=== PATIENT | male | born 1945 | race Caucasian/White ===

== ENCOUNTER 2019-05-08 17:44 | Emergency (ER) | payer MEDICARE, OTHER ==
[~2019-05-08 17:44] MED LIST: Iopamidol 370 76% 100 ML VIAL ONE
[2019-05-08] MEDS ORDERED: Aspirin Chewable 81 MG TAB ONE (17:58)
[2019-05-08 18:11] LABS: #Basophils 0.1 thou/uL (0.0-0.2); #Eosinphils 0.2 thou/uL (0.0-0.7); #Lymphocytes 2.9 thou/uL (1.20-3.40); #Monocytes 0.9 thou/uL (0.11-0.59); #Neutrophils 8.1 thou/uL (1.40-6.50); %Basophils 0.7 % (0.0-1.0); %Eosinophils 1.6 % (0.0-10.0); %Lymphocytes 23.9 % (21.0-51.0); %Monocytes 7.3 % (0.0-10.0); %Neutrophils 66.5 % (42.0-75.0); Hemoglobin 12.9 g/dL (14.0-18.0); Mean Corpuscular HGB CONC 31.8 g/dL (32.0-36.0); Mean Corpuscular Hemoglobin 26.5 pg (27.0-31.0); Mean Corpuscular Volume 83.3 fL (78.0-98.0); Mean Platelet Volume 6.9 fL (7.4-10.4); Platelet Count 298 thou/uL (130-400); RBC Distribution Width 13.4 % (11.5-14.5); Red Blood Cell (RBC) Count 4.87 mill/uL (4.70-6.10); White Blood Cell (WBC) Count 12.2 thou/uL (4.8-10.8)
[2019-05-08 18:44] LABS: ALT (SGPT) 13 U/L (8-55); AST (SGOT) 16 U/L (5-34); Albumin 4.3 g/dL (3.4-4.8); Alkaline Phosphatase 83 U/L (40-150); Anion Gap 17 mmol/L (10-20); BUN (Urea Nitrogen) 17 mg/dL (8.4-25.7); Bilirubin, Total 0.4 mg/dL (0.2-1.2); Calc. Creatinine Clearance 0 mL/min (70-130); Calcium 9.5 mg/dL (7.8-10.44); Carbon Dioxide 24 mmol/L (23-31); Chloride 100 mmol/L (98-107); Estimated GFR-MDRD 63; Globulin 3.2 g/dL (2.4-3.5); Glucose 115 mg/dL (83-110); Lipase 36 U/L (8-78); Potassium 3.7 mmol/L (3.5-5.1); Protein, Total 7.5 g/dL (5.8-8.1); Sodium 137 mmol/L (136-145)
--- NOTE | 2019-05-08 19:37 | RAD ---
EXAM: Single view of the chest HISTORY: Chest pain COMPARISON: 04/14/2014 FINDINGS: Single view of the chest shows a normal sized cardiomediastinal silhouette. Atheroscleroti c calcific lesions are seen in the aorta. There is no evidence of consolidation, mass, or pleural effusion. The bones are unremarkable. IMPRESSION: No evidence of acute cardiopulmonary disease
--- NOTE | 2019-05-08 19:40 | CT ---
EXAM: CTA of the chest HISTORY: Shortness of breath and elevated d-dimer COMPARISON: None TECHNIQUE: Multiple contiguous axial images were obtained a CTA of the chest with contrast per pulmon florecita embolism protocol. 3-D oblique MIP reformats and direct coronal reformats were performed. FINDINGS: HEART: Normal in size without focal cardiac abnormality. There is pericardial thickening. No pericard ial effusion is seen. Calcifications are seen in the coronary arteries. PULMONARY ARTERIES: Normal in caliber without filling defects to suggest pulmonary emboli. MEDIASTINUM: No hilar or mediastinal lymphadenopathy. LUNGS: No focal infiltrates or masses. Atelectasis is seen in the left lung base. PLEURAL SPACE: No pleural effusion or pneumothorax. CHEST WALL SOFT TISSUES: Unremarkable VISUALIZED OSSEOUS STRUCTURES: Degenerative changes in the spine. VISUALIZED SUBDIAPHRAGMATIC STRUCTURES: Unremarkable IMPRESSION: 1. No evidence of pulmonary thromboembolism 2. Nonspecific pericardial thickening
[2019-05-08] MEDS ORDERED: Cyclobenzaprine 10 MG TAB ONE (19:56)
[2019-05-08] MEDS ORDERED: Ketorolac Tromethamine 30 MG/ML VIAL ONE (19:56)
== END 2019-05-08 23:30 | disposition home or self-care (01) ==
LOC: BURERS 17:44
DX: R07.9 Chest pain, unspecified (principal); M54.6 Pain in thoracic spine; I10 Essential (primary) hypertension; E03.9 Hypothyroidism, unspecified; Z79.82 Long term (current) use of aspirin; Z79.899 Other long term (current) drug therapy
CPT/HCPCS: 36415; 71045; 71275; 80053; 83690; 84484; 85025; 85379; 93005; J1885; Q9967

== ENCOUNTER 2022-11-01 15:08 | Emergency (ER) | payer MEDICARE ==
[2022-11-01 16:14] LABS: #Lymphocytes 0.6 thou/uL (1.20-3.40); #Monocytes 0.5 thou/uL (0.11-0.59); #Neutrophils 4.6 thou/uL (1.40-6.50); %Basophils 0.9 % (0.0-1.0); %Eosinophils 0.9 % (0.0-10.0); %Lymphocytes 10.1 % (21.0-51.0); %Monocytes 7.9 % (0.0-10.0); %Neutrophils 80.3 % (42.0-75.0); Hemoglobin 5.1 g/dL (14.0-18.0); INR-International Normal Ratio 1.1; Mean Corpuscular HGB CONC 25.9 g/dL (32.0-36.0); Mean Corpuscular Hemoglobin 16.5 pg (27.0-31.0); Mean Corpuscular Volume 63.8 fl (78.0-98.0); Mean Platelet Volume 6.9 fL (7.4-10.4); Platelet Count 399 10x3/uL (130-400); Prothrombin Time 14.7 sec (12.0-14.7); RBC Distribution Width 19.2 % (11.5-14.5); Red Blood Cell (RBC) Count 3.08 mill/uL (4.70-6.10); White Blood Cell (WBC) Count 5.8 10x3/uL (4.8-10.8)
[2022-11-01 16:15] LABS: PTT 33.4 sec (22.9-36.1)
[2022-11-01 16:20] LABS: ALT (SGPT) 19 U/L (8-55); AST (SGOT) 18 U/L (5-34); Albumin 3.5 g/dL (3.4-4.8); Alkaline Phosphatase 43 U/L (40-110); Anion Gap 13 mmol/L (10-20); BUN (Urea Nitrogen) 16 mg/dL (8.4-25.7); Bilirubin, Total 0.4 mg/dL (0.2-1.2); Calc. Creatinine Clearance 0 mL/min (70-130); Calcium 8.7 mg/dL (7.8-10.44); Carbon Dioxide 27 mmol/L (23-31); Chloride 100 mmol/L (98-107); Estimated GFR 63; Globulin 3.1 g/dL (2.4-3.5); Glucose 103 mg/dL (83-110); Potassium 4.5 mmol/L (3.5-5.1); Protein, Total 6.6 g/dL (5.8-8.1); Sodium 135 mmol/L (136-145)
[2022-11-01 16:46] LABS: Hypochromia SLIGHT = 6-15 cells (100X) (0-5/hpf); MDiff Complete? YES; Microcytosis SLIGHT = 6-15 cells (100X) (0-5/hpf); Ovalocytes SLIGHT = 2-5 cells (100X) (0-1/hpf); Platelet Morphology Comment Appears Adequate; Polychromasia SLIGHT = 2-3 cells (100X) (0-2/hpf); Reflex for Review?? NO
== END 2022-11-01 19:00 | disposition short-term general hospital (02) ==
LOC: BURERS 15:08
DX: D64.9 Anemia, unspecified (principal); Z79.01 Long term (current) use of anticoagulants; Z86.79 Personal history of other diseases of the circulatory system; K21.9 Gastro-esophageal reflux disease without esophagitis; E78.00 Pure hypercholesterolemia, unspecified; E03.9 Hypothyroidism, unspecified; I10 Essential (primary) hypertension; Z79.899 Other long term (current) drug therapy
CPT/HCPCS: 36415; 80053; 85025; 85610; 85730; 93005

== ENCOUNTER 2022-11-07 17:43 | Inpatient (IN) | payer MEDICARE ==
[2022-11-07 22:02] VITALS: BMI 33.7
[2022-11-07] MEDS ORDERED: Bisacodyl 10 MG SUPP PR PRN (23:45)
[2022-11-07] MEDS ORDERED: HYDROcodone/Acetaminophen 5/325 mg Tablet PO PRN ×2 (23:45)
[2022-11-07] MEDS ORDERED: Acetaminophen 650 MG Suppository PR PRN (23:45)
[2022-11-07] MEDS ORDERED: Zolpidem Tartrate 5 MG TAB PO PRN (23:45)
[2022-11-07] MEDS ORDERED: Loperamide HCl 2 MG CAP PO PRN ×2 (23:45)
[2022-11-07] MEDS ORDERED: Calcium Carbonate 500 MG ChewTAB PO PRN (23:45)
[2022-11-07] MEDS ORDERED: Bisacodyl 5 MG TAB PO PRN (23:45)
[2022-11-07] MEDS ORDERED: Ondansetron PF 4 MG/2 ML Vial SLOW IVP PRN (23:45)
[2022-11-07] MEDS ORDERED: Guaifenesin DM 100-10/5 ML UDCUP PO PRN (23:45)
[2022-11-08] MEDS ORDERED: Non-Formulary Item 1 EACH (Ondansetron Hcl [Zofran] 4 MG Tab) SL PRN (07:01)
[2022-11-08] MEDS ORDERED: Nystatin Powder 15 GM BOT TOP PRN (07:20)
[2022-11-08 07:44] LABS: SARS-CoV-2 NAA Rapid Test Not Detected (NotDetected)
[2022-11-08] MEDS: azaTHIOprine 50 MG TAB PO SCH (08:30)
[2022-11-08] MEDS: predniSONE 5 MG TAB PO SCH (08:30)
[2022-11-08] MEDS: Fluconazole 100 MG TAB PO SCH (08:30)
[2022-11-08] MEDS: Apixaban 2.5 MG TAB PO SCH ×2 (08:30→20:32)
[2022-11-08] MEDS: Amiodarone 200 MG TAB PO SCH (08:30)
[2022-11-08] MEDS: Ferrous Sulfate 325 MG TAB PO SCH (08:33)
[2022-11-08] MEDS: Calcium Carbonate 600 MG + Vit D TAB PO SCH (08:33)
[2022-11-08] MEDS: Pyridostigmine Bromide IR 60 MG TAB PO SCH ×3 (08:33→20:33)
[2022-11-08] MEDS: Ondansetron ODT 4 MG TAB SL PRN (10:04)
[2022-11-08] MEDS: Gabapentin 100 MG CAP PO SCH (20:31)
[2022-11-08] MEDS: Atorvastatin Calcium 10 MG TAB PO SCH (20:33)
[2022-11-08] MEDS: Acetaminophen 325 MG TAB PO PRN (20:36)
[2022-11-09] MEDS: Pyridostigmine Bromide IR 60 MG TAB PO SCH ×3 (08:25→21:22)
[2022-11-09] MEDS: Fluconazole 100 MG TAB PO SCH (08:25)
[2022-11-09] MEDS: azaTHIOprine 50 MG TAB PO SCH (08:26)
[2022-11-09] MEDS: Acetaminophen 325 MG TAB PO PRN ×2 (08:26→21:22)
[2022-11-09] MEDS: Ferrous Sulfate 325 MG TAB PO SCH (08:26)
[2022-11-09] MEDS: predniSONE 5 MG TAB PO SCH (08:27)
[2022-11-09] MEDS: Calcium Carbonate 600 MG + Vit D TAB PO SCH (08:27)
[2022-11-09] MEDS: Amiodarone 200 MG TAB PO SCH (08:28)
[2022-11-09] MEDS: Apixaban 2.5 MG TAB PO SCH ×2 (08:28→21:24)
[2022-11-09] MEDS: Gabapentin 100 MG CAP PO SCH (21:23)
[2022-11-09] MEDS: Atorvastatin Calcium 10 MG TAB PO SCH (21:24)
[2022-11-10 05:34] LABS: Hemoglobin 8.2 g/dL (14.0-18.0); Mean Corpuscular HGB CONC 30.9 g/dL (32.0-36.0); Mean Corpuscular Hemoglobin 21.7 pg (27.0-31.0); Mean Corpuscular Volume 70.4 fl (78.0-98.0); Mean Platelet Volume 6.1 fL (7.4-10.4); Platelet Count 387 10x3/uL (130-400); RBC Distribution Width 24.4 % (11.5-14.5); Red Blood Cell (RBC) Count 3.77 mill/uL (4.70-6.10); White Blood Cell (WBC) Count 4.1 10x3/uL (4.8-10.8)
[2022-11-10 05:35] LABS: #Basophils 0.1 thou/uL (0.0-0.2); #Eosinphils 0.1 thou/uL (0.0-0.7); #Lymphocytes 0.6 thou/uL (1.20-3.40); #Monocytes 0.5 thou/uL (0.11-0.59); #Neutrophils 2.9 thou/uL (1.40-6.50); %Basophils 1.3 % (0.0-1.0); %Eosinophils 2.1 % (0.0-10.0); %Lymphocytes 14.8 % (21.0-51.0); %Monocytes 11.1 % (0.0-10.0); %Neutrophils 70.8 % (42.0-75.0)
[2022-11-10 05:48] LABS: ALT (SGPT) 19 U/L (8-55); AST (SGOT) 16 U/L (5-34); Albumin 2.9 g/dL (3.4-4.8); Alkaline Phosphatase 43 U/L (40-110); Anion Gap 11 mmol/L (10-20); BUN (Urea Nitrogen) 12 mg/dL (8.4-25.7); Bilirubin, Total 0.4 mg/dL (0.2-1.2); Calc. Creatinine Clearance 93 mL/min (70-130); Calcium 8.5 mg/dL (7.8-10.44); Carbon Dioxide 27 mmol/L (23-31); Chloride 103 mmol/L (98-107); Estimated GFR 78; Glucose 84 mg/dL (83-110); Protein, Total 5.9 g/dL (5.8-8.1); Sodium 137 mmol/L (136-145)
[2022-11-10] MEDS: Acetaminophen 325 MG TAB PO PRN (08:14)
[2022-11-10] MEDS: Pyridostigmine Bromide IR 60 MG TAB PO SCH ×3 (08:14→20:48)
[2022-11-10] MEDS: Calcium Carbonate 600 MG + Vit D TAB PO SCH (08:14)
[2022-11-10] MEDS: Ferrous Sulfate 325 MG TAB PO SCH (08:15)
[2022-11-10] MEDS: azaTHIOprine 50 MG TAB PO SCH (08:15)
[2022-11-10] MEDS: predniSONE 5 MG TAB PO SCH (08:15)
[2022-11-10] MEDS: Amiodarone 200 MG TAB PO SCH (08:16)
[2022-11-10] MEDS: Apixaban 2.5 MG TAB PO SCH ×2 (08:16→20:48)
[2022-11-10] MEDS: Fluconazole 100 MG TAB PO SCH (08:17)
[2022-11-10] MEDS: Gabapentin 100 MG CAP PO SCH (20:47)
[2022-11-10] MEDS: Atorvastatin Calcium 10 MG TAB PO SCH (20:48)
[2022-11-11] MEDS: Ferrous Sulfate 325 MG TAB PO SCH (08:48)
[2022-11-11] MEDS: Fluconazole 100 MG TAB PO SCH ×2 (08:48→08:50)
[2022-11-11] MEDS: azaTHIOprine 50 MG TAB PO SCH (08:48)
[2022-11-11] MEDS: Acetaminophen 325 MG TAB PO PRN (08:49)
[2022-11-11] MEDS: Amiodarone 200 MG TAB PO SCH (08:50)
[2022-11-11] MEDS: Apixaban 2.5 MG TAB PO SCH ×2 (08:51→20:27)
[2022-11-11] MEDS: Calcium Carbonate 600 MG + Vit D TAB PO SCH (08:51)
[2022-11-11] MEDS: Pyridostigmine Bromide IR 60 MG TAB PO SCH ×3 (08:52→20:27)
[2022-11-11] MEDS: predniSONE 5 MG TAB PO SCH (08:52)
[2022-11-11] MEDS: Senokot S 8.6-50 MG TAB PO PRN (09:00)
[2022-11-11] MEDS: Gabapentin 100 MG CAP PO SCH (20:27)
[2022-11-11] MEDS: Atorvastatin Calcium 10 MG TAB PO SCH (20:27)
[2022-11-12] MEDS: Ferrous Sulfate 325 MG TAB PO SCH (08:42)
[2022-11-12] MEDS: Calcium Carbonate 600 MG + Vit D TAB PO SCH (08:42)
[2022-11-12] MEDS: Amiodarone 200 MG TAB PO SCH (08:43)
[2022-11-12] MEDS: azaTHIOprine 50 MG TAB PO SCH (08:43)
[2022-11-12] MEDS: predniSONE 5 MG TAB PO SCH (08:44)
[2022-11-12] MEDS: Apixaban 2.5 MG TAB PO SCH ×2 (08:44→21:08)
[2022-11-12] MEDS: Pyridostigmine Bromide IR 60 MG TAB PO SCH ×3 (08:44→21:08)
[2022-11-12] MEDS: Senokot S 8.6-50 MG TAB PO PRN (08:49)
[2022-11-12] MEDS: Gabapentin 100 MG CAP PO SCH (21:08)
[2022-11-12] MEDS: Atorvastatin Calcium 10 MG TAB PO SCH (21:08)
[2022-11-13 07:27] LABS: #Basophils 0.1 thou/uL (0.0-0.2); #Eosinphils 0.1 thou/uL (0.0-0.7); #Lymphocytes 0.8 thou/uL (1.20-3.40); #Monocytes 0.6 thou/uL (0.11-0.59); #Neutrophils 3.2 thou/uL (1.40-6.50); %Basophils 1.8 % (0.0-1.0); %Eosinophils 1.8 % (0.0-10.0); %Lymphocytes 16.7 % (21.0-51.0); %Monocytes 12.4 % (0.0-10.0); %Neutrophils 67.4 % (42.0-75.0); Hemoglobin 9.1 g/dL (14.0-18.0); Mean Corpuscular HGB CONC 30.4 g/dL (32.0-36.0); Mean Corpuscular Hemoglobin 21.9 pg (27.0-31.0); Mean Corpuscular Volume 72.1 fl (78.0-98.0); Mean Platelet Volume 6.5 fL (7.4-10.4); Platelet Count 458 10x3/uL (130-400); RBC Distribution Width 24.8 % (11.5-14.5); Red Blood Cell (RBC) Count 4.16 mill/uL (4.70-6.10); White Blood Cell (WBC) Count 4.8 10x3/uL (4.8-10.8)
[2022-11-13] MEDS: Apixaban 2.5 MG TAB PO SCH ×2 (08:33→20:19)
[2022-11-13] MEDS: Ferrous Sulfate 325 MG TAB PO SCH (08:33)
[2022-11-13] MEDS: Calcium Carbonate 600 MG + Vit D TAB PO SCH (08:34)
[2022-11-13] MEDS: azaTHIOprine 50 MG TAB PO SCH (08:34)
[2022-11-13] MEDS: Pyridostigmine Bromide IR 60 MG TAB PO SCH ×3 (08:35→20:19)
[2022-11-13] MEDS: predniSONE 5 MG TAB PO SCH (08:35)
[2022-11-13] MEDS: Amiodarone 200 MG TAB PO SCH (08:35)
[2022-11-13] MEDS: Fluconazole 100 MG TAB PO SCH (08:35)
[2022-11-13 09:07] LABS: Anisocytosis MARKED = >30 cells (100X) (0-5/hpf); MDiff Complete? YES; Microcytosis SLIGHT = 6-15 cells (100X) (0-5/hpf); Platelet Morphology Comment Appears Increased
[2022-11-13] MEDS: Acetaminophen 325 MG TAB PO PRN (11:37)
[2022-11-13] MEDS: Gabapentin 100 MG CAP PO SCH (20:18)
[2022-11-13] MEDS: Atorvastatin Calcium 10 MG TAB PO SCH (20:19)
[2022-11-14] MEDS: Acetaminophen 325 MG TAB PO PRN ×2 (08:41→20:33)
[2022-11-14] MEDS: Apixaban 2.5 MG TAB PO SCH ×2 (08:41→20:34)
[2022-11-14] MEDS: azaTHIOprine 50 MG TAB PO SCH (08:41)
[2022-11-14] MEDS: predniSONE 5 MG TAB PO SCH (08:42)
[2022-11-14] MEDS: Fluconazole 100 MG TAB PO SCH (08:42)
[2022-11-14] MEDS: Ferrous Sulfate 325 MG TAB PO SCH (08:42)
[2022-11-14] MEDS: Amiodarone 200 MG TAB PO SCH (08:42)
[2022-11-14] MEDS: Pyridostigmine Bromide IR 60 MG TAB PO SCH ×3 (08:42→20:34)
[2022-11-14] MEDS: Calcium Carbonate 600 MG + Vit D TAB PO SCH (08:42)
[2022-11-14] MEDS: Ondansetron ODT 4 MG TAB SL PRN (15:29)
[2022-11-14] MEDS: Gabapentin 100 MG CAP PO SCH (20:33)
[2022-11-14] MEDS: Atorvastatin Calcium 10 MG TAB PO SCH (20:34)
[2022-11-15] MEDS: Amiodarone 200 MG TAB PO SCH (09:31)
[2022-11-15] MEDS: azaTHIOprine 50 MG TAB PO SCH (09:31)
[2022-11-15] MEDS: Fluconazole 100 MG TAB PO SCH (09:32)
[2022-11-15] MEDS: Ferrous Sulfate 325 MG TAB PO SCH (09:32)
[2022-11-15] MEDS: Pyridostigmine Bromide IR 60 MG TAB PO SCH ×3 (09:32→20:34)
[2022-11-15] MEDS: Apixaban 2.5 MG TAB PO SCH ×2 (09:32→20:34)
[2022-11-15] MEDS: predniSONE 5 MG TAB PO SCH (09:32)
[2022-11-15] MEDS: Calcium Carbonate 600 MG + Vit D TAB PO SCH (09:32)
[2022-11-15] MEDS: Gabapentin 100 MG CAP PO SCH (20:33)
[2022-11-15] MEDS: Atorvastatin Calcium 10 MG TAB PO SCH (20:34)
[2022-11-16] MEDS: Ferrous Sulfate 325 MG TAB PO SCH (08:52)
[2022-11-16] MEDS: azaTHIOprine 50 MG TAB PO SCH (08:53)
[2022-11-16] MEDS: Calcium Carbonate 600 MG + Vit D TAB PO SCH (08:53)
[2022-11-16] MEDS: Pyridostigmine Bromide IR 60 MG TAB PO SCH ×3 (08:53→20:21)
[2022-11-16] MEDS: Apixaban 2.5 MG TAB PO SCH ×2 (08:53→20:25)
[2022-11-16] MEDS: predniSONE 5 MG TAB PO SCH (08:53)
[2022-11-16] MEDS: Fluconazole 100 MG TAB PO SCH (08:53)
[2022-11-16] MEDS: Acetaminophen 325 MG TAB PO PRN (08:54)
[2022-11-16] MEDS: Senokot S 8.6-50 MG TAB PO PRN (08:59)
[2022-11-16] MEDS: Amiodarone 200 MG TAB PO SCH (09:10)
[2022-11-16] MEDS: Ondansetron ODT 4 MG TAB SL PRN (15:47)
[2022-11-16] MEDS: Gabapentin 100 MG CAP PO SCH (20:22)
[2022-11-16] MEDS: Atorvastatin Calcium 10 MG TAB PO SCH (20:23)
[2022-11-17] MEDS: Acetaminophen 325 MG TAB PO PRN ×2 (06:36→21:44)
[2022-11-17] MEDS: predniSONE 5 MG TAB PO SCH (08:28)
[2022-11-17] MEDS: Fluconazole 100 MG TAB PO SCH (08:28)
[2022-11-17] MEDS: azaTHIOprine 50 MG TAB PO SCH (08:28)
[2022-11-17] MEDS: Calcium Carbonate 600 MG + Vit D TAB PO SCH (08:28)
[2022-11-17] MEDS: Pyridostigmine Bromide IR 60 MG TAB PO SCH ×3 (08:29→21:44)
[2022-11-17] MEDS: Amiodarone 200 MG TAB PO SCH (08:29)
[2022-11-17] MEDS: Ferrous Sulfate 325 MG TAB PO SCH (08:29)
[2022-11-17] MEDS: Apixaban 2.5 MG TAB PO SCH ×2 (08:30→21:44)
[2022-11-17] MEDS ORDERED: Acetaminophen 325 MG TAB PO SCH (13:30)
[2022-11-17] MEDS ORDERED: diphenhydrAMINE 25 MG CAP PO SCH (13:30)
[2022-11-17] MEDS ORDERED: Sodium Chloride 0.9% 250 ML 250 ML IVPB SCH (13:30)
[2022-11-17] MEDS ORDERED: diphenhydrAMINE 50 MG/ML VIAL IVP PRN (14:00)
[2022-11-17] MEDS ORDERED: GAMUNEX C IV SCH (14:00)
[2022-11-17] MEDS: Atorvastatin Calcium 10 MG TAB PO SCH (21:44)
[2022-11-17] MEDS: Gabapentin 100 MG CAP PO SCH (21:44)
[2022-11-18] MEDS: Calcium Carbonate 600 MG + Vit D TAB PO SCH (08:11)
[2022-11-18] MEDS: azaTHIOprine 50 MG TAB PO SCH (08:11)
[2022-11-18] MEDS: predniSONE 5 MG TAB PO SCH (08:11)
[2022-11-18] MEDS: Fluconazole 100 MG TAB PO SCH (08:12)
[2022-11-18] MEDS: Amiodarone 200 MG TAB PO SCH (08:12)
[2022-11-18] MEDS: Ferrous Sulfate 325 MG TAB PO SCH (08:12)
[2022-11-18] MEDS: Pyridostigmine Bromide IR 60 MG TAB PO SCH ×3 (08:13→20:19)
[2022-11-18] MEDS: Apixaban 2.5 MG TAB PO SCH ×2 (08:13→20:19)
[2022-11-18] MEDS: Gabapentin 100 MG CAP PO SCH (20:18)
[2022-11-18] MEDS: Acetaminophen 325 MG TAB PO PRN (20:18)
[2022-11-18] MEDS: Atorvastatin Calcium 10 MG TAB PO SCH (20:19)
[2022-11-19] MEDS: predniSONE 5 MG TAB PO SCH (08:19)
[2022-11-19] MEDS: Calcium Carbonate 600 MG + Vit D TAB PO SCH (08:19)
[2022-11-19] MEDS: Pyridostigmine Bromide IR 60 MG TAB PO SCH ×3 (08:19→20:24)
[2022-11-19] MEDS: Amiodarone 200 MG TAB PO SCH (08:20)
[2022-11-19] MEDS: azaTHIOprine 50 MG TAB PO SCH (08:20)
[2022-11-19] MEDS: Ferrous Sulfate 325 MG TAB PO SCH (08:20)
[2022-11-19] MEDS: Fluconazole 100 MG TAB PO SCH (08:21)
[2022-11-19] MEDS: Apixaban 2.5 MG TAB PO SCH ×2 (08:21→20:24)
[2022-11-19] MEDS: Acetaminophen 325 MG TAB PO PRN ×2 (09:21→16:41)
[2022-11-19] MEDS: Atorvastatin Calcium 10 MG TAB PO SCH (20:24)
[2022-11-19] MEDS: Gabapentin 100 MG CAP PO SCH (20:24)
[2022-11-20] MEDS: Ferrous Sulfate 325 MG TAB PO SCH (09:13)
[2022-11-20] MEDS: Amiodarone 200 MG TAB PO SCH (09:14)
[2022-11-20] MEDS: Calcium Carbonate 600 MG + Vit D TAB PO SCH (09:15)
[2022-11-20] MEDS: Apixaban 2.5 MG TAB PO SCH ×2 (09:15→21:09)
[2022-11-20] MEDS: azaTHIOprine 50 MG TAB PO SCH (09:15)
[2022-11-20] MEDS: predniSONE 5 MG TAB PO SCH (09:15)
[2022-11-20] MEDS: Pyridostigmine Bromide IR 60 MG TAB PO SCH ×3 (09:16→21:09)
[2022-11-20] MEDS: Fluconazole 100 MG TAB PO SCH (09:16)
[2022-11-20] MEDS: Acetaminophen 325 MG TAB PO PRN ×2 (09:25→15:29)
[2022-11-20] MEDS: Atorvastatin Calcium 10 MG TAB PO SCH (21:09)
[2022-11-20] MEDS: Gabapentin 100 MG CAP PO SCH (21:09)
[2022-11-21 05:19] LABS: #Basophils 0.1 thou/uL (0.0-0.2); #Eosinphils 0.1 thou/uL (0.0-0.7); #Lymphocytes 0.8 thou/uL (1.20-3.40); #Monocytes 0.5 thou/uL (0.11-0.59); %Basophils 1.5 % (0.0-1.0); %Eosinophils 2.3 % (0.0-10.0); %Lymphocytes 14.1 % (21.0-51.0); %Monocytes 9.8 % (0.0-10.0); %Neutrophils 72.3 % (42.0-75.0); Hemoglobin 8.7 g/dL (14.0-18.0); Mean Corpuscular Hemoglobin 23.1 pg (27.0-31.0); Mean Corpuscular Volume 74.6 fl (78.0-98.0); Mean Platelet Volume 5.7 fL (7.4-10.4); Platelet Count 450 10x3/uL (130-400); RBC Distribution Width 26.3 % (11.5-14.5); Red Blood Cell (RBC) Count 3.76 mill/uL (4.70-6.10); White Blood Cell (WBC) Count 5.5 10x3/uL (4.8-10.8)
[2022-11-21 06:02] LABS: Anisocytosis MODERATE=16-30 cells (100X) (0-5/hpf); MDiff Complete? YES; Microcytosis SLIGHT = 6-15 cells (100X) (0-5/hpf); Ovalocytes SLIGHT = 2-5 cells (100X) (0-1/hpf); Platelet Morphology Comment Appears Increased; Polychromasia SLIGHT = 2-3 cells (100X) (0-2/hpf)
[2022-11-21] MEDS: Ferrous Sulfate 325 MG TAB PO SCH (07:23)
[2022-11-21] MEDS: Acetaminophen 325 MG TAB PO PRN ×2 (07:24→14:31)
[2022-11-21] MEDS: Ondansetron ODT 4 MG TAB SL PRN (09:05)
[2022-11-21] MEDS: Apixaban 2.5 MG TAB PO SCH ×2 (10:03→21:41)
[2022-11-21] MEDS: predniSONE 5 MG TAB PO SCH (10:03)
[2022-11-21] MEDS: Amiodarone 200 MG TAB PO SCH (10:04)
[2022-11-21] MEDS: azaTHIOprine 50 MG TAB PO SCH (10:04)
[2022-11-21] MEDS: Fluconazole 100 MG TAB PO SCH (10:05)
[2022-11-21] MEDS: Pyridostigmine Bromide IR 60 MG TAB PO SCH ×3 (10:05→21:41)
[2022-11-21] MEDS: Calcium Carbonate 600 MG + Vit D TAB PO SCH (14:26)
[2022-11-21] MEDS: Gabapentin 100 MG CAP PO SCH (21:40)
[2022-11-21] MEDS: Atorvastatin Calcium 10 MG TAB PO SCH (21:41)
[2022-11-22] MEDS ORDERED: Meclizine HCl 25 MG TAB PO PRN (07:27)
[2022-11-22] MEDS: predniSONE 5 MG TAB PO SCH (08:24)
[2022-11-22] MEDS: Apixaban 2.5 MG TAB PO SCH ×2 (08:25→20:49)
[2022-11-22] MEDS: Amiodarone 200 MG TAB PO SCH (08:25)
[2022-11-22] MEDS: azaTHIOprine 50 MG TAB PO SCH (08:25)
[2022-11-22] MEDS: Ferrous Sulfate 325 MG TAB PO SCH (08:26)
[2022-11-22] MEDS: Pyridostigmine Bromide IR 60 MG TAB PO SCH ×3 (08:26→20:49)
[2022-11-22] MEDS: Calcium Carbonate 600 MG + Vit D TAB PO SCH (08:26)
[2022-11-22] MEDS: Acetaminophen 325 MG TAB PO PRN (08:27)
[2022-11-22] MEDS: Fluconazole 100 MG TAB PO SCH (10:25)
[2022-11-22] MEDS: Gabapentin 100 MG CAP PO SCH (20:48)
[2022-11-22] MEDS: Atorvastatin Calcium 10 MG TAB PO SCH (20:49)
[2022-11-23] MEDS: azaTHIOprine 50 MG TAB PO SCH (08:58)
[2022-11-23] MEDS: Calcium Carbonate 600 MG + Vit D TAB PO SCH (08:58)
[2022-11-23] MEDS: Ferrous Sulfate 325 MG TAB PO SCH (08:59)
[2022-11-23] MEDS: Pyridostigmine Bromide IR 60 MG TAB PO SCH ×3 (09:00→20:44)
[2022-11-23] MEDS: predniSONE 5 MG TAB PO SCH (09:00)
[2022-11-23] MEDS: Amiodarone 200 MG TAB PO SCH (09:01)
[2022-11-23] MEDS: Apixaban 2.5 MG TAB PO SCH ×2 (09:01→20:44)
[2022-11-23] MEDS: Fluconazole 100 MG TAB PO SCH (09:03)
[2022-11-23] MEDS: Gabapentin 100 MG CAP PO SCH (20:44)
[2022-11-23] MEDS: Atorvastatin Calcium 10 MG TAB PO SCH (20:44)
[2022-11-24 06:05] LABS: Hemoglobin 8.8 g/dL (14.0-18.0); Mean Corpuscular HGB CONC 29.9 g/dL (32.0-36.0); Mean Corpuscular Volume 76.9 fl (78.0-98.0); Platelet Count 440 10x3/uL (130-400); RBC Distribution Width 27.3 % (11.5-14.5); Red Blood Cell (RBC) Count 3.82 mill/uL (4.70-6.10); White Blood Cell (WBC) Count 4.7 10x3/uL (4.8-10.8)
[2022-11-24 06:06] LABS: #Eosinphils 0.1 thou/uL (0.0-0.7); #Lymphocytes 0.8 thou/uL (1.20-3.40); #Monocytes 0.5 thou/uL (0.11-0.59); #Neutrophils 3.4 thou/uL (1.40-6.50); %Eosinophils 1.7 % (0.0-10.0); %Lymphocytes 15.8 % (21.0-51.0); %Neutrophils 71.5 % (42.0-75.0); ALT (SGPT) 18 U/L (8-55); AST (SGOT) 21 U/L (5-34); Albumin 3.3 g/dL (3.4-4.8); Alkaline Phosphatase 46 U/L (40-110); Anion Gap 12 mmol/L (10-20); BUN (Urea Nitrogen) 10 mg/dL (8.4-25.7); Bilirubin, Total 0.5 mg/dL (0.2-1.2); Calc. Creatinine Clearance 98 mL/min (70-130); Calcium 8.6 mg/dL (7.8-10.44); Carbon Dioxide 27 mmol/L (23-31); Chloride 103 mmol/L (98-107); Estimated GFR 83; Glucose 76 mg/dL (83-110); Potassium 3.8 mmol/L (3.5-5.1); Protein, Total 6.3 g/dL (5.8-8.1); Sodium 138 mmol/L (136-145)
[2022-11-24] MEDS: azaTHIOprine 50 MG TAB PO SCH ×2 (08:40→08:41)
[2022-11-24] MEDS: Calcium Carbonate 600 MG + Vit D TAB PO SCH (08:42)
[2022-11-24] MEDS: Apixaban 2.5 MG TAB PO SCH ×2 (08:42→20:46)
[2022-11-24] MEDS: predniSONE 5 MG TAB PO SCH (08:43)
[2022-11-24] MEDS: Pyridostigmine Bromide IR 60 MG TAB PO SCH ×3 (08:44→20:46)
[2022-11-24] MEDS: Amiodarone 200 MG TAB PO SCH (08:45)
[2022-11-24] MEDS: Fluconazole 100 MG TAB PO SCH (08:46)
[2022-11-24] MEDS: Ferrous Sulfate 325 MG TAB PO SCH (08:46)
[2022-11-24] MEDS: Gabapentin 100 MG CAP PO SCH (20:45)
[2022-11-24] MEDS: Atorvastatin Calcium 10 MG TAB PO SCH (20:46)
[2022-11-25] MEDS: Polyethylene Glycol OPTH DROP 15 ML BOT EA EYE PRN ×2 (08:39→20:35)
[2022-11-25] MEDS: Ferrous Sulfate 325 MG TAB PO SCH (08:40)
[2022-11-25] MEDS: Pyridostigmine Bromide IR 60 MG TAB PO SCH ×3 (08:40→20:33)
[2022-11-25] MEDS: Fluconazole 100 MG TAB PO SCH (08:41)
[2022-11-25] MEDS: Calcium Carbonate 600 MG + Vit D TAB PO SCH (08:41)
[2022-11-25] MEDS: azaTHIOprine 50 MG TAB PO SCH (08:41)
[2022-11-25] MEDS: predniSONE 5 MG TAB PO SCH (08:41)
[2022-11-25] MEDS: Apixaban 2.5 MG TAB PO SCH ×2 (08:42→20:33)
[2022-11-25] MEDS: Amiodarone 200 MG TAB PO SCH (08:42)
[2022-11-25] MEDS: Atorvastatin Calcium 10 MG TAB PO SCH (20:33)
[2022-11-25] MEDS: Gabapentin 100 MG CAP PO SCH (20:33)
[2022-11-25] MEDS: Acetaminophen 325 MG TAB PO PRN (20:34)
[2022-11-26] MEDS: Pyridostigmine Bromide IR 60 MG TAB PO SCH ×3 (08:22→21:10)
[2022-11-26] MEDS: predniSONE 5 MG TAB PO SCH (08:22)
[2022-11-26] MEDS: azaTHIOprine 50 MG TAB PO SCH (08:22)
[2022-11-26] MEDS: Amiodarone 200 MG TAB PO SCH (08:22)
[2022-11-26] MEDS: Apixaban 2.5 MG TAB PO SCH ×2 (08:23→21:10)
[2022-11-26] MEDS: Ferrous Sulfate 325 MG TAB PO SCH (08:23)
[2022-11-26] MEDS: Fluconazole 100 MG TAB PO SCH (08:23)
[2022-11-26] MEDS: Acetaminophen 325 MG TAB PO PRN (08:23)
[2022-11-26] MEDS: Polyethylene Glycol OPTH DROP 15 ML BOT EA EYE PRN (08:24)
[2022-11-26] MEDS: Calcium Carbonate 600 MG + Vit D TAB PO SCH (08:29)
[2022-11-26] MEDS: Gabapentin 100 MG CAP PO SCH (21:10)
[2022-11-26] MEDS: Atorvastatin Calcium 10 MG TAB PO SCH (21:10)
[2022-11-27] MEDS: Calcium Carbonate 600 MG + Vit D TAB PO SCH (08:31)
[2022-11-27] MEDS: predniSONE 5 MG TAB PO SCH (08:31)
[2022-11-27] MEDS: Fluconazole 100 MG TAB PO SCH (08:31)
[2022-11-27] MEDS: Pyridostigmine Bromide IR 60 MG TAB PO SCH ×3 (08:31→20:45)
[2022-11-27] MEDS: Amiodarone 200 MG TAB PO SCH (08:31)
[2022-11-27] MEDS: Apixaban 2.5 MG TAB PO SCH ×2 (08:31→20:44)
[2022-11-27] MEDS: azaTHIOprine 50 MG TAB PO SCH (08:31)
[2022-11-27] MEDS: Ferrous Sulfate 325 MG TAB PO SCH (08:31)
[2022-11-27] MEDS: Acetaminophen 325 MG TAB PO PRN ×2 (10:15→20:45)
[2022-11-27] MEDS: Gabapentin 100 MG CAP PO SCH (20:44)
[2022-11-27] MEDS: Atorvastatin Calcium 10 MG TAB PO SCH (20:44)
[2022-11-27] MEDS: Polyethylene Glycol OPTH DROP 15 ML BOT EA EYE PRN (21:01)
[2022-11-28] MEDS: Ferrous Sulfate 325 MG TAB PO SCH (08:57)
[2022-11-28] MEDS: Pyridostigmine Bromide IR 60 MG TAB PO SCH ×3 (08:57→20:31)
[2022-11-28] MEDS: predniSONE 5 MG TAB PO SCH (08:58)
[2022-11-28] MEDS: azaTHIOprine 50 MG TAB PO SCH (08:58)
[2022-11-28] MEDS: Amiodarone 200 MG TAB PO SCH (08:59)
[2022-11-28] MEDS: Apixaban 2.5 MG TAB PO SCH ×2 (08:59→20:31)
[2022-11-28] MEDS: Calcium Carbonate 600 MG + Vit D TAB PO SCH (08:59)
[2022-11-28] MEDS: Fluconazole 100 MG TAB PO SCH (08:59)
[2022-11-28] MEDS: Acetaminophen 325 MG TAB PO PRN (09:01)
[2022-11-28] MEDS: Atorvastatin Calcium 10 MG TAB PO SCH (20:31)
[2022-11-28] MEDS: Gabapentin 100 MG CAP PO SCH (20:32)
[2022-11-29] MEDS: predniSONE 5 MG TAB PO SCH (08:33)
[2022-11-29] MEDS: Calcium Carbonate 600 MG + Vit D TAB PO SCH (08:33)
[2022-11-29] MEDS: Amiodarone 200 MG TAB PO SCH (08:34)
[2022-11-29] MEDS: azaTHIOprine 50 MG TAB PO SCH (08:35)
[2022-11-29] MEDS: Fluconazole 100 MG TAB PO SCH (08:36)
[2022-11-29] MEDS: Ferrous Sulfate 325 MG TAB PO SCH (08:36)
[2022-11-29] MEDS: Pyridostigmine Bromide IR 60 MG TAB PO SCH ×3 (08:37→21:06)
[2022-11-29] MEDS: Apixaban 2.5 MG TAB PO SCH ×2 (08:37→21:06)
[2022-11-29] MEDS: Polyethylene Glycol OPTH DROP 15 ML BOT EA EYE PRN (08:38)
[2022-11-29] MEDS: Acetaminophen 325 MG TAB PO PRN ×2 (09:50→14:27)
[2022-11-29] MEDS: Atorvastatin Calcium 10 MG TAB PO SCH (21:07)
[2022-11-29] MEDS: Gabapentin 100 MG CAP PO SCH (21:07)
[2022-11-30] MEDS: azaTHIOprine 50 MG TAB PO SCH (08:11)
[2022-11-30] MEDS: Pyridostigmine Bromide IR 60 MG TAB PO SCH ×3 (08:12→20:55)
[2022-11-30] MEDS: predniSONE 5 MG TAB PO SCH (08:12)
[2022-11-30] MEDS: Amiodarone 200 MG TAB PO SCH (08:13)
[2022-11-30] MEDS: Fluconazole 100 MG TAB PO SCH (08:13)
[2022-11-30] MEDS: Apixaban 2.5 MG TAB PO SCH ×2 (08:14→20:55)
[2022-11-30] MEDS: Ferrous Sulfate 325 MG TAB PO SCH (08:14)
[2022-11-30] MEDS: Calcium Carbonate 600 MG + Vit D TAB PO SCH (08:14)
[2022-11-30] MEDS: Acetaminophen 325 MG TAB PO PRN ×2 (08:16→22:44)
[2022-11-30] MEDS: Polyethylene Glycol OPTH DROP 15 ML BOT EA EYE PRN (16:31)
[2022-11-30] MEDS: Atorvastatin Calcium 10 MG TAB PO SCH (20:55)
[2022-11-30] MEDS: Gabapentin 100 MG CAP PO SCH (20:55)
[2022-12-01] MEDS: predniSONE 5 MG TAB PO SCH (08:57)
[2022-12-01] MEDS: Ferrous Sulfate 325 MG TAB PO SCH (08:57)
[2022-12-01] MEDS: azaTHIOprine 50 MG TAB PO SCH (08:58)
[2022-12-01] MEDS: Apixaban 2.5 MG TAB PO SCH ×2 (08:59→20:26)
[2022-12-01] MEDS: Amiodarone 200 MG TAB PO SCH (08:59)
[2022-12-01] MEDS: Pyridostigmine Bromide IR 60 MG TAB PO SCH ×3 (09:00→20:26)
[2022-12-01] MEDS: Fluconazole 100 MG TAB PO SCH (09:00)
[2022-12-01] MEDS: Calcium Carbonate 600 MG + Vit D TAB PO SCH (09:01)
[2022-12-01] MEDS: Atorvastatin Calcium 10 MG TAB PO SCH (20:25)
[2022-12-01] MEDS: Gabapentin 100 MG CAP PO SCH (20:26)
[2022-12-01] MEDS: Acetaminophen 325 MG TAB PO PRN (20:26)
[2022-12-02] MEDS: Pyridostigmine Bromide IR 60 MG TAB PO SCH ×3 (08:10→20:52)
[2022-12-02] MEDS: Calcium Carbonate 600 MG + Vit D TAB PO SCH (08:10)
[2022-12-02] MEDS: Ferrous Sulfate 325 MG TAB PO SCH (08:10)
[2022-12-02] MEDS: azaTHIOprine 50 MG TAB PO SCH (08:10)
[2022-12-02] MEDS: Apixaban 2.5 MG TAB PO SCH ×2 (08:11→20:52)
[2022-12-02] MEDS: Amiodarone 200 MG TAB PO SCH (08:11)
[2022-12-02] MEDS: Fluconazole 100 MG TAB PO SCH (08:11)
[2022-12-02] MEDS: predniSONE 5 MG TAB PO SCH (08:11)
[2022-12-02] MEDS: Acetaminophen 325 MG TAB PO PRN ×2 (09:03→20:52)
[2022-12-02] MEDS: Gabapentin 100 MG CAP PO SCH (20:52)
[2022-12-02] MEDS: Atorvastatin Calcium 10 MG TAB PO SCH (20:52)
[2022-12-03] MEDS: predniSONE 5 MG TAB PO SCH (09:15)
[2022-12-03] MEDS: Ferrous Sulfate 325 MG TAB PO SCH (09:15)
[2022-12-03] MEDS: Calcium Carbonate 600 MG + Vit D TAB PO SCH (09:15)
[2022-12-03] MEDS: Acetaminophen 325 MG TAB PO PRN ×2 (09:15→20:27)
[2022-12-03] MEDS: Fluconazole 100 MG TAB PO SCH (09:16)
[2022-12-03] MEDS: Amiodarone 200 MG TAB PO SCH (09:16)
[2022-12-03] MEDS: Apixaban 2.5 MG TAB PO SCH ×2 (09:16→20:29)
[2022-12-03] MEDS: azaTHIOprine 50 MG TAB PO SCH (09:16)
[2022-12-03] MEDS: Pyridostigmine Bromide IR 60 MG TAB PO SCH ×3 (09:16→20:29)
[2022-12-03] MEDS: Gabapentin 100 MG CAP PO SCH (20:28)
[2022-12-03] MEDS: Atorvastatin Calcium 10 MG TAB PO SCH (20:29)
[2022-12-04 05:27] LABS: #Eosinphils 0.1 thou/uL (0.0-0.7); #Lymphocytes 0.6 thou/uL (1.20-3.40); #Monocytes 0.4 thou/uL (0.11-0.59); #Neutrophils 4.5 thou/uL (1.40-6.50); %Basophils 0.5 % (0.0-1.0); %Eosinophils 1.9 % (0.0-10.0); %Lymphocytes 10.4 % (21.0-51.0); %Monocytes 7.5 % (0.0-10.0); %Neutrophils 79.8 % (42.0-75.0); Hemoglobin 8.8 g/dL (14.0-18.0); Mean Corpuscular HGB CONC 30.9 g/dL (32.0-36.0); Mean Corpuscular Hemoglobin 24.7 pg (27.0-31.0); Mean Corpuscular Volume 80.1 fl (78.0-98.0); Mean Platelet Volume 6.2 fL (7.4-10.4); Platelet Count 283 10x3/uL (130-400); Red Blood Cell (RBC) Count 3.57 mill/uL (4.70-6.10); White Blood Cell (WBC) Count 5.6 10x3/uL (4.8-10.8)
[2022-12-04 05:55] LABS: Anion Gap 12 mmol/L (10-20); BUN (Urea Nitrogen) 18 mg/dL (8.4-25.7); Calc. Creatinine Clearance 99 mL/min (70-130); Calcium 8.4 mg/dL (7.8-10.44); Carbon Dioxide 27 mmol/L (23-31); Chloride 107 mmol/L (98-107); Estimated GFR 84; Glucose 97 mg/dL (83-110); Potassium 3.6 mmol/L (3.5-5.1); Sodium 142 mmol/L (136-145)
[2022-12-04 06:20] VITALS: BP 152/74; TEMP 98.1
[2022-12-04 06:33] LABS: Anisocytosis MODERATE=16-30 cells (100X) (0-5/hpf); Hypochromia SLIGHT = 6-15 cells (100X) (0-5/hpf); MDiff Complete? YES; Microcytosis SLIGHT = 6-15 cells (100X) (0-5/hpf); Ovalocytes SLIGHT = 2-5 cells (100X) (0-1/hpf); Poikilocytosis SLIGHT = 6-15 cells (100X) (0-5/hpf); Polychromasia SLIGHT = 2-3 cells (100X) (0-2/hpf); Schistocytes SLIGHT = 2-5 cells (100X) (0-1/hpf)
[2022-12-04] MEDS: predniSONE 5 MG TAB PO SCH (09:39)
[2022-12-04] MEDS: Ferrous Sulfate 325 MG TAB PO SCH (09:40)
[2022-12-04] MEDS: Fluconazole 100 MG TAB PO SCH (09:40)
[2022-12-04] MEDS: azaTHIOprine 50 MG TAB PO SCH (09:40)
[2022-12-04] MEDS: Pyridostigmine Bromide IR 60 MG TAB PO SCH (09:40)
[2022-12-04] MEDS: Amiodarone 200 MG TAB PO SCH (09:41)
[2022-12-04] MEDS: Apixaban 2.5 MG TAB PO SCH (09:44)
[2022-12-04] MEDS: Calcium Carbonate 600 MG + Vit D TAB PO SCH (09:44)
== END 2022-12-04 13:40 | disposition home or self-care (01) | DRG 948 ==
LOC: BURMED 21:00
PROVIDERS: ADMIT Family Medicine; ATTEND Family Medicine
DX: R53.1 Weakness (principal); G70.00 Myasthenia gravis without (acute) exacerbation; D64.9 Anemia, unspecified; I10 Essential (primary) hypertension; E78.5 Hyperlipidemia, unspecified; I48.91 Unspecified atrial fibrillation; Z79.01 Long term (current) use of anticoagulants; Z98.890 Other specified postprocedural states; Z79.899 Other long term (current) drug therapy; Z20.822 Contact with and (suspected) exposure to COVID-19
CPT/HCPCS: 36415; 80048; 80053; 85025; 87811; J7050; J7500; J7512; Q0162; U0002